=== PATIENT | male | born 1975 | race Caucasian/White ===

== ENCOUNTER 2024-07-23 10:21 | Outpatient (AMB) | payer OTHER, SELFPAY ==
[2024-07-23 10:25] VITALS: BP 134/90; PULSE 117; TEMP 37.2; O2SAT 95; BMI 28.1
--- NOTE | 2024-07-23 10:25 | AM.OFFWIN_ITS ---
Intake Vital Signs 07/23/24 10:25 Height 5 ft 7 in Weight 179 lb 8 oz BMI 28.1 BP 134/90 H Blood Pressure Location Lt brachial Position Sitting Pulse 117 H Pulse Source Pulse Oximeter Temp 98.9 F Temp Source Temporal Artery Scan Pulse Oximetry (%) 95 Oxygen Delivery Method Room Air Intake Visit Reasons: EP-cough, sore throat, fever Intake Note: Pt presents to the office today for c/o cough, fever, chills, congestion, headache, and wheezing x3 days. Pt states his grandson who he was with on sunday tested positive for the Flu on sunday. Patient Tobacco Use Status: Never used Tobacco Allergies penicillin V Allergy (Unknown, Verified 07/23/24 10:) Dizziness No Known Allergies [No Known Allergies*] Allergy (Unverified 07/23/24 10:) HPI EP-cough, sore throat, fever HPI Details This note is constructed using voice recognition software. While every effort has been made to ensure accuracy, computer installer errors may have been included. The patient is a 49 year old male who presents to the clinic today with cough, fever, body aches starting 2 days ago after exposure to person positive for influenza. He reports that yesterday his symptoms got suddenly much worse, and he had to leave work. He denies shortness of breath, however does report that he is having some wheezing. He reports a diagnosis of asthma as a child, but has not required an inhaler in several decades. [facility] Social History Patient Tobacco Use Status: Never used Tobacco Review of Systems Const All systems reviewed & are unremarkable except as noted in HPI and below Physical Exam Vital Signs: Last Vital Signs Temp 98.9 F 07/23/24 10:25 Pulse 117 H 07/23/24 10:25 BP 134/90 H 07/23/24 10:25 Pulse Ox 95 07/23/24 10:25 Oxygen Delivery Method Room Air 07/23/24 10:25 BMI result Body Mass Index 28.1 Const General: cooperative, healthy appearing, comfortable and no acute distress Orientation/consciousness: patient oriented x3 Limitations: no limitations HEENT Head: Yes normal to inspection Ears: hearing grossly normal bilaterally, external ears normal and TM's normal bilaterally General nose exam: Normal external nose present, Normal nares present and No nasal discharge present Face and sinus: Yes normal facial exam and Yes sinuses nontender Mouth: Normal oral and palatal mucosa present and moist mucous membranes Throat: Yes tonsils normal, Yes uvula midline and Yes posterior oropharynx abnormal (Erythema) Eyes General: appearance normal, both eyes and all related structures Neck Neck: Yes normal visual inspection Resp Effort & Inspection: normal respiratory effort, able to speak in complete sentences, Actively coughing, no respiratory distress, not tachypneic, no tripod positioning and no use of accessory muscles Auscultation: clear to auscultation bilaterally (Wheeze that clears with cough) Cardio Jugular venous distension: no JVD Rate: regular rate Rhythm: regular rhythm Heart sounds: S1 normal heart sound present, S2 normal heart sound present, no click, no gallops, no murmurs and no rubs Skin General skin exam: no rashes or lesions noted, elasticity normal and turgor normal Neuro General: patient oriented x3 Extrem General: Yes normal to inspection and Yes no clubbing, cyanosis or edema Assessment & Plan Assessment & Plan (1) Flu-like symptoms: Code(s): R68.89 - Other general symptoms and signs Plan: Viral swab obtained to rule out Covid, Influenza, and RSV based on symptoms. Advised mask wearing while symptomatic and quarantine per current CDC guidelines. Reviewed at home support methods including hydration, humidification, vix vapor rub, sinus rinse, and otc treatment options. Discussed treatment with antiviral therapy for covid with paxlovid and with Tamiflu for influenza, including appropriate use and side effects, and need to start medication within 5 day of symptom onset, preferably within 48 hours of symptom onset. Patient wishes to proceed tamiflu if positive therapy. Albuterol inhalers sent for symptomatic management of wheeze. Advised follow up with worsening symptoms such as dyspnea at rest, which would require emergent evaluation. Plan See above for full details and plan. Orders: Orders SARS-CoV2/FLU/RSV Today J06.9 - Acute upper respiratory infection, unspecified Medications: New albuterol sulfate 90 mcg/actuation 1 - 2 puffs inhalation QID PRN 6.7 grams 0RF Shortness Of Breath Or Wheezing Coding Level of Care Code Est Pt Level 3 (57441) Diagnoses Flu-like symptoms R68.89
== END 2024-07-23 12:02 | disposition home or self-care (01) ==
PROVIDERS: Visit Provider Registered Nurse
DX: R68.89 Other general symptoms and signs (principal)

== ENCOUNTER 2024-07-23 10:21 | Outpatient (REF) | payer OTHER, SELFPAY ==
[2024-07-23 14:16] LABS: Influenza A PCR POSITIVE (Negative); Influenza B PCR NEGATIVE (Negative); Resp Syncy Virus RNA Qual PCR NEGATIVE (Negative); SARS COV2 PCR INHOUSE NEGATIVE (Negative)
== END 2024-07-23 10:22 | disposition home or self-care (01) ==
LOC: HO.LAB 10:21
PROVIDERS: Visit Provider Registered Nurse
DX: J06.9 Acute upper respiratory infection, unspecified (principal); R68.89 Other general symptoms and signs
CPT/HCPCS: 0241U

== ENCOUNTER 2024-09-16 16:50 | Emergency (ER) | payer OTHER, SELFPAY ==
[2024-09-16 17:12] VITALS: BP 160/95; BP 166/106; PULSE 85; PULSE 96; RESP 18; TEMP 36.8; O2SAT 95; O2SAT 99; BMI 27.4
[2024-09-16 17:13] LABS: Glucose, Whole Blood 115 mg/dL (60-115)
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
[2024-09-16 18:12] LABS: Glucose, Whole Blood 103 mg/dL (60-115)
[2024-09-16 18:27] VITALS: BP 160/95; PULSE 85; RESP 18; TEMP 36.8; O2SAT 95
== END 2024-09-16 18:27 | disposition home or self-care (01) ==
PROVIDERS: Emergency Provider Internal Medicine
DX: E10.649 Type 1 diabetes mellitus with hypoglycemia without coma (principal); Z79.4 Long term (current) use of insulin; Z79.899 Other long term (current) drug therapy
CPT/HCPCS: 82947; 99283